=== PATIENT | male | born 1995 | race Caucasian/White ===

== ENCOUNTER 2017-04-25 07:38 | Emergency (ER) | payer BC ==
[2017-04-25 07:46] VITALS: RESP 20
[2017-04-25] MEDS ORDERED: SODIUM CHLORIDE 0.9% 1,000 ML IV STA (08:16)
[2017-04-25] MEDS ORDERED: KETOROLAC 30 MG/ML 1 ML VIAL IVP STA (08:17)
[2017-04-25] MEDS ORDERED: FAMOTIDINE 20 MG/2 ML VIAL IV STA (08:17)
[2017-04-25] MEDS ORDERED: ONDANSETRON 4 MG/2 ML VIAL IVP STA (08:17)
--- NOTE | 2017-04-25 08:26 | ED ---
Fever HPI - General Chief Complaint: Fever Stated Complaint: Fever Time Seen by Provider: 04/25/17 08:14 Source: patient, RN notes reviewed Mode of arrival: ambulatory Limitations: no limitations - History of Present Illness Initial Comments: 22-year-old male presents to the emergency department with chief complaint of fever. Patient states he's had fever and sore throat for the past 4 days. Patient states he started to have a little bit of nausea is having crampy abdominal pain followed by diarrhea. Patient states that no one else is sick at home. Patient denies any health history. Patient states he hasn't had any ear pain or headache. Patient was concerned due to the continued symptoms so they thought that he should be evaluated.Patient denies any recent shortness of breath, chest pain, back pain,vomiting, numbness or tingling, dysuria or hematuria, constipation, headaches or visual changes, or any other current symptoms. - Related Data Previous Rx's Medication Instructions Recorded Ibuprofen [Motrin] 600 mg PO Q6HR PRN #20 tab 04/25/17 Ondansetron Odt [Zofran ODT] 4 mg PO Q8HR PRN #20 tab 04/25/17 Allergies Allergy/AdvReac Type Severity Reaction Status Date / Time No Known Allergies Allergy Verified 04/25/17 08:00 Review of Systems ROS Statement: Those systems with pertinent positive or pertinent negative responses have been documented in the HPI. ROS Other: All systems not noted in ROS Statement are negative. Past Medical History Past Medical History: No Reported History History of Any Multi-Drug Resistant Organisms: None Reported Past Surgical History: No Surgical Hx Reported Past Psychological History: No Psychological Hx Reported Smoking Status: Current every day smoker Past Alcohol Use History: None Reported Past Drug Use History: Marijuana General Exam Limitations: no limitations General appearance: alert, in no apparent distress Head exam: Present: atraumatic, normocephalic, normal inspection Eye exam: Present: normal appearance, PERRL, EOMI. Absent: scleral icterus, conjunctival injection, periorbital swelling ENT exam: Present: normal exam, mucous membranes moist, TM's normal bilaterally , normal external ear exam. Absent: normal oropharynx (Minimal erythema noted no exudates.) Neck exam: Present: normal inspection. Absent: tenderness, meningismus, lymphadenopathy Respiratory exam: Present: normal lung sounds bilaterally. Absent: respiratory distress, wheezes, rales, rhonchi, stridor Cardiovascular Exam: Present: regular rate, normal rhythm, normal heart sounds. Absent: systolic murmur, diastolic murmur, rubs, gallop, clicks GI/Abdominal exam: Present: soft, normal bowel sounds. Absent: distended, tenderness, guarding, rebound, rigid Neurological exam: Present: alert, oriented X3 Psychiatric exam: Present: normal affect, normal mood Skin exam: Present: warm, dry, intact, normal color. Absent: rash Course Vital Signs 04/25/17 07:44 Temperature 99.5 F Pulse Rate 86 Respiratory 20 Rate Blood Pressure 103/56 O2 Sat by Pulse 99 Oximetry Medical Decision Making - Medical Decision Making 22-year-old male presents to the emergency department with chief complaint of fever chills sore throat. His lab work is reviewed. Patient does appear to have low sodium however we did give the patient fluids here. This time we discussed increasing fluids in the diet. We discussed patient's symptoms are most likely due to a viral like syndrome. We did discuss follow-up with the family care doctor we did discuss return parameters all patient's questions. He stated he understood reasons finger. Plan. This time he will be discharged home. - Lab Data Result diagrams: 04/25/17 07:58 04/25/17 07:58 Lab Results 04/25/17 04/25/17 04/25/17 Range/Units 07:58 07:58 08:36 WBC 7.4 (3.8-10.6) k/uL RBC 5.42 (4.30-5.90) m/uL Hgb 16.4 (13.0-17.5) gm/dL Hct 45.2 (39.0-53.0) % MCV 83.4 (80.0-100.0) fL MCH 30.2 (25.0-35.0) pg MCHC 36.2 (31.0-37.0) g/dL RDW 12.7 (11.5-15.5) % Plt Count 185 (150-450) k/uL Neutrophils % 79 % Lymphocytes % 10 % Monocytes % 8 % Eosinophils % 0 % Basophils % 0 % Neutrophils # 5.8 (1.3-7.7) k/uL Lymphocytes # 0.7 L (1.0-4.8) k/uL Monocytes # 0.6 (0-1.0) k/uL Eosinophils # 0.0 (0-0.7) k/uL Basophils # 0.0 (0-0.2) k/uL Sodium 135 L (137-145) mmol/L Potassium 4.2 (3.5-5.1) mmol/L Chloride 101 (98-107) mmol/L Carbon Dioxide 20 L (22-30) mmol/L Anion Gap 14 mmol/L BUN 14 (9-20) mg/dL Creatinine 0.87 (0.66-1.25) mg/dL Est GFR (MDRD) Af Amer >60 (>60 ml/min/1.73 sqM) Est GFR (MDRD) Non-Af >60 (>60 ml/min/1.73 sqM) Glucose 108 H (74-99) mg/dL Calcium 9.3 (8.4-10.2) mg/dL Total Bilirubin 0.8 (0.2-1.3) mg/dL AST 31 (17-59) U/L ALT 29 (21-72) U/L Alkaline Phosphatase 40 (38-126) U/L Total Protein 7.9 (6.3-8.2) g/dL Albumin 4.7 (3.5-5.0) g/dL Urine Color Urine Appearance (Clear) Urine pH (5.0-8.0) Ur Specific [place] (1.001-1.035) Urine Protein (Negative) Urine Glucose (UA) (Negative) Urine Blood (Negative) Urine Nitrite (Negative) Urine Bilirubin (Negative) Urine Urobilinogen (<2.0) mg/dL Ur Leukocyte Esterase (Negative) Urine RBC (0-5) /hpf Urine WBC (0-5) /hpf Urine Mucus (None) /hpf Group A Strep Rapid Negative (Negative) 04/25/17 Range/Units 08:45 WBC (3.8-10.6) k/uL RBC (4.30-5.90) m/uL Hgb (13.0-17.5) gm/dL Hct (39.0-53.0) % MCV (80.0-100.0) fL MCH (25.0-35.0) pg MCHC (31.0-37.0) g/dL RDW (11.5-15.5) % Plt Count (150-450) k/uL Neutrophils % % Lymphocytes % % Monocytes % % Eosinophils % % Basophils % % Neutrophils # (1.3-7.7) k/uL Lymphocytes # (1.0-4.8) k/uL Monocytes # (0-1.0) k/uL Eosinophils # (0-0.7) k/uL Basophils # (0-0.2) k/uL Sodium (137-145) mmol/L Potassium (3.5-5.1) mmol/L Chloride (98-107) mmol/L Carbon Dioxide (22-30) mmol/L Anion Gap mmol/L BUN (9-20) mg/dL Creatinine (0.66-1.25) mg/dL Est GFR (MDRD) Af Amer (>60 ml/min/1.73 sqM) Est GFR (MDRD) Non-Af (>60 ml/min/1.73 sqM) Glucose (74-99) mg/dL Calcium (8.4-10.2) mg/dL Total Bilirubin (0.2-1.3) mg/dL AST (17-59) U/L ALT (21-72) U/L Alkaline Phosphatase (38-126) U/L Total Protein (6.3-8.2) g/dL Albumin (3.5-5.0) g/dL Urine Color Yellow Urine Appearance Clear (Clear) Urine pH 6.0 (5.0-8.0) Ur Specific [place] 1.026 (1.001-1.035) Urine Protein 1+ H (Negative) Urine Glucose (UA) Negative (Negative) Urine Blood Small H (Negative) Urine Nitrite Negative (Negative) Urine Bilirubin Negative (Negative) Urine Urobilinogen <2.0 (<2.0) mg/dL Ur Leukocyte Esterase Negative (Negative) Urine RBC 2 (0-5) /hpf Urine WBC 1 (0-5) /hpf Urine Mucus Rare H (None) /hpf Group A Strep Rapid (Negative) Disposition Clinical Impression: Viral infection, Pharyngitis, Diarrhea Disposition: HOME SELF-CARE Condition: Stable Instructions: Fever in Adults (ED) Additional Instructions: Please use medication as discussed. Please follow up with family doctor if symptoms have not improved over the next two days. Please return to the emergency room if your symptoms increase or worsen or for any other concerns. Prescriptions: Ibuprofen [Motrin] 600 mg PO Q6HR PRN #20 tab PRN Reason: Fever Ondansetron Odt [Zofran ODT] 4 mg PO Q8HR PRN #20 tab PRN Reason: Nausea Referrals: Anthony Rodrigez DO [STAFF PHYSICIAN] - 1-2 days Time of Disposition: 09:20
[2017-04-25 08:35] LABS: Basophils % (A) 0 %; CHCM 37.3; Eosinophils % (A) 0 %; HCT 45.2 % (39.0-53.0); HDW 2.88; HGB 16.4 gm/dL (13.0-17.5); Luc % (Auto) 3; Lymphocytes # (A) 0.7 k/uL (1.0-4.8); Lymphocytes % (A) 10 %; MCH 30.2 pg (25.0-35.0); MCHC 36.2 g/dL (31.0-37.0); MCV 83.4 fL (80.0-100.0); Mean Platelet Volume 6.8; Monocytes # (A) 0.6 k/uL (0-1.0); Monocytes % (A) 8 %; Neutrophils # (A) 5.8 k/uL (1.3-7.7); Neutrophils % (A) 79 %; RBC 5.42 m/uL (4.30-5.90); RDW 12.7 % (11.5-15.5); WBC 7.4 k/uL (3.8-10.6); WBC (Perox) 6.94
[2017-04-25 08:51] LABS: ALT 29 U/L (21-72); AST 31 U/L (17-59); Alkaline Phosphatase 40 U/L (38-126); Anion Gap 14 mmol/L; Blood Urea Nitrogen 14 mg/dL (9-20); Calcium 9.3 mg/dL (8.4-10.2); Carbon Dioxide 20 mmol/L (22-30); Chloride 101 mmol/L (98-107); Glucose 108 mg/dL (74-99); Non-African American GFR(MDRD) >60 (>60 ml/min/1.73 sqM); Potassium 4.2 mmol/L (3.5-5.1); Sodium 135 mmol/L (137-145); Total Bilirubin 0.8 mg/dL (0.2-1.3); Total Protein 7.9 g/dL (6.3-8.2)
[2017-04-25 08:59] LABS: Appearance,Urine Clear (Clear); Bilirubin,Urine Negative (Negative); Glucose,Urine (UA) Negative (Negative); Ketones,Urine 3+ (Negative); Leukocyte Esterase,Urine Negative (Negative); Mucus,Urine Rare /hpf; Nitrite,Urine Negative (Negative); Particle Count 7249; Protein,Urine 1+ (Negative); RBC,Urine 2 /hpf (0-5); Specific Gravity,Urine 1.026 (1.001-1.035); UA Billing (MACRO vs. MICRO) MICRO; Urobilinogen,Urine <2.0 mg/dL (<2.0); WBC,Urine 1 /hpf (0-5)
--- NOTE | 2017-04-25 09:01 | XR ---
EXAMINATION TYPE: XR chest 2V DATE OF EXAM: 04/25/2017 COMPARISON: NONE TECHNIQUE: PA and lateral views submitted. HISTORY: cough and fever FINDINGS: The lungs are clear and there is no pneumothorax, pleural effusion, or focal pneumonia. IMPRESSION: 1. No acute process.
[2017-04-25 09:30] VITALS: BP 122/78; PULSE 84; TEMP 98.8
== END 2017-04-25 09:31 | disposition home or self-care (01) ==
LOC: EC 07:38
DX: B34.9 Viral infection, unspecified (principal); J02.9 Acute pharyngitis, unspecified; R19.7 Diarrhea, unspecified; R11.0 Nausea; R10.9 Unspecified abdominal pain; F17.200 Nicotine dependence, unspecified, uncomplicated
CPT/HCPCS: 36415; 80053; 85025; 81001; 87081; 87430; 71020; 99283; 96374; 96375 ×2; 96361; J2405; J1885

== ENCOUNTER 2018-03-08 11:26 | Observation (INO) | payer BC, OTHER ==
[2018-03-08] MEDS ORDERED: SODIUM CHLORIDE 0.9% 1,000 ML IV STA (11:50)
[2018-03-08] MEDS ORDERED: RX INFO: IV CONTRAST WAS GIVEN 1 EACH MISC MISCELLANE PRN (11:50)
[2018-03-08] MEDS ORDERED: ACETAMINOPHEN TAB 325 MG TAB PO STA (11:51)
--- NOTE | 2018-03-08 12:03 | ED ---
Fever HPI - General Source: patient, RN notes reviewed Mode of arrival: wheelchair Limitations: no limitations <Jarvis Velez - Last Filed: 03/08/18 13:17> <Baljit Sloan - Last Filed: 03/08/18 13:21> - General Chief Complaint: Fever Stated Complaint: FEVER X 3 DAYS, PAIN Time Seen by Provider: 03/08/18 11:37 - History of Present Illness Initial Comments: This is a 22-year-old male presents emergency Department chief complaint of fever, abdominal pain. Patient states has been present last 2-3 days. Patient complains of midabdominal pain, Nonradiating. He has had some nausea no vomiting no diarrhea patient. Patient states that he has had a temp at home of 101. He states he's had slight cough but no congestion, sore throat, ear pain. Patient denies any neck pain. He's had intermittent on and off headaches but nothing consistent. He has not taken any recent Tylenol Motrin. Patient has normal drug ALLERGIES. (Jarvis Velez) - Related Data Home Medications Medication Instructions Recorded Confirmed No Known Home Medications [No 03/08/18 03/08/18 Known Home Medications] Allergies Allergy/AdvReac Type Severity Reaction Status Date / Time No Known Allergies Allergy Verified 03/08/18 11:53 Review of Systems ROS Other: All systems not noted in ROS Statement are negative. <Jarvis Velez - Last Filed: 03/08/18 13:17> ROS Other: All systems not noted in ROS Statement are negative. <Baljit Sloan - Last Filed: 03/08/18 13:21> ROS Statement: Those systems with pertinent positive or pertinent negative responses have been documented in the HPI. Past Medical History Past Medical History: No Reported History History of Any Multi-Drug Resistant Organisms: None Reported Past Surgical History: No Surgical Hx Reported Past Psychological History: No Psychological Hx Reported Smoking Status: Current every day smoker Past Alcohol Use History: None Reported Past Drug Use History: Marijuana <Jarvis Velez - Last Filed: 03/08/18 13:17> General Exam Limitations: no limitations General appearance: alert, in no apparent distress Head exam: Present: atraumatic, normocephalic, normal inspection Eye exam: Present: normal appearance, PERRL, EOMI. Absent: scleral icterus, conjunctival injection, periorbital swelling ENT exam: Present: normal exam, normal oropharynx, mucous membranes moist, TM's normal bilaterally, normal external ear exam Neck exam: Present: normal inspection, full ROM. Absent: tenderness, meningismus, lymphadenopathy Respiratory exam: Present: normal lung sounds bilaterally. Absent: respiratory distress, wheezes, rales, rhonchi, stridor Cardiovascular Exam: Present: regular rate, normal rhythm, normal heart sounds. Absent: systolic murmur, diastolic murmur, rubs, gallop, clicks GI/Abdominal exam: Present: soft, tenderness (Moderate periumbilical to right lower quadrant tenderness), normal bowel sounds. Absent: distended, guarding, rebound, rigid Back exam: Absent: CVA tenderness (R), CVA tenderness (L) Skin exam: Present: warm, dry, intact, normal color. Absent: rash <Jarvis Velez - Last Filed: 03/08/18 13:17> Vital Signs 03/08/18 03/08/18 11:31 12:32 Temperature 101.0 F H 99.4 F Pulse Rate 95 84 Respiratory 20 16 Rate Blood Pressure 117/71 119/61 O2 Sat by Pulse 98 95 Oximetry Medical Decision Making - Lab Data Result diagrams: 03/08/18 12:04 03/08/18 12:04 <Jarvis Velez - Last Filed: 03/08/18 13:17> - Lab Data Result diagrams: 03/08/18 12:04 03/08/18 12:04 <Baljit Sloan - Last Filed: 03/08/18 13:21> - Medical Decision Making 22-year-old male presents from for abdominal pain fever. Patient has acute appendicitis on CT unprompted. Patient was given a dose of IV antibiotics. Patient will be admitted to surgery. (Jarvis Velez) The patient is seen and examined. All diagnostics are reviewed. It does appear as though he has an appendicitis. The case is discussed with Dr. Erasmo Hook and she will be evaluating the patient shortly and taking him to surgery. The case is discussed with the PA and I agree with the findings as documented. ( Baljit Sloan) - Lab Data Lab Results 03/08/18 03/08/18 03/08/18 Range/Units 12:04 12:04 12:04 WBC 6.4 (3.8-10.6) k/uL RBC 4.94 (4.30-5.90) m/uL Hgb 14.8 (13.0-17.5) gm/dL Hct 40.3 (39.0-53.0) % MCV 81.6 (80.0-100.0) fL MCH 30.0 (25.0-35.0) pg MCHC 36.7 (31.0-37.0) g/dL RDW 12.9 (11.5-15.5) % Plt Count 195 (150-450) k/uL Neutrophils % 79 % Lymphocytes % 11 % Monocytes % 7 % Eosinophils % 1 % Basophils % 0 % Neutrophils # 5.1 (1.3-7.7) k/uL Lymphocytes # 0.7 L (1.0-4.8) k/uL Monocytes # 0.5 (0-1.0) k/uL Eosinophils # 0.0 (0-0.7) k/uL Basophils # 0.0 (0-0.2) k/uL Hyperchromasia Slight PT (9.0-12.0) sec INR (<1.2) APTT (22.0-30.0) sec Sodium 139 (137-145) mmol/L Potassium 3.6 (3.5-5.1) mmol/L Chloride 99 (98-107) mmol/L Carbon Dioxide 26 (22-30) mmol/L Anion Gap 14 mmol/L BUN 12 (9-20) mg/dL Creatinine 0.70 (0.66-1.25) mg/dL Est GFR (CKD-EPI)AfAm >90 (>60 ml/min/1.73 sqM) Est GFR (CKD-EPI)NonAf >90 (>60 ml/min/1.73 sqM) Glucose 134 H (74-99) mg/dL Plasma Lactic Acid [place] 1.3 (0.7-2.0) mmol/L Calcium 9.1 (8.4-10.2) mg/dL Total Bilirubin 0.5 (0.2-1.3) mg/dL AST 27 (17-59) U/L ALT 45 (21-72) U/L Alkaline Phosphatase 35 L (38-126) U/L Total Protein 7.0 (6.3-8.2) g/dL Albumin 4.5 (3.5-5.0) g/dL Amylase 40 (30-110) U/L Lipase 33 (23-300) U/L Urine Color Urine Appearance (Clear) Urine pH (5.0-8.0) Ur Specific [place] (1.001-1.035) Urine Protein (Negative) Urine Glucose (UA) (Negative) Urine Ketones (Negative) Urine Blood (Negative) Urine Nitrite (Negative) Urine Bilirubin (Negative) Urine Urobilinogen (<2.0) mg/dL Ur Leukocyte Esterase (Negative) Urine RBC (0-5) /hpf Urine WBC (0-5) /hpf Urine Mucus (None) /hpf 03/08/18 03/08/18 Range/Units 12:04 12:20 WBC (3.8-10.6) k/uL RBC (4.30-5.90) m/uL Hgb (13.0-17.5) gm/dL Hct (39.0-53.0) % MCV (80.0-100.0) fL MCH (25.0-35.0) pg MCHC (31.0-37.0) g/dL RDW (11.5-15.5) % Plt Count (150-450) k/uL Neutrophils % % Lymphocytes % % Monocytes % % Eosinophils % % Basophils % % Neutrophils # (1.3-7.7) k/uL Lymphocytes # (1.0-4.8) k/uL Monocytes # (0-1.0) k/uL Eosinophils # (0-0.7) k/uL Basophils # (0-0.2) k/uL Hyperchromasia PT 10.7 (9.0-12.0) sec INR 1.1 (<1.2) APTT 28.5 (22.0-30.0) sec Sodium (137-145) mmol/L Potassium (3.5-5.1) mmol/L Chloride (98-107) mmol/L Carbon Dioxide (22-30) mmol/L Anion Gap mmol/L BUN (9-20) mg/dL Creatinine (0.66-1.25) mg/dL Est GFR (CKD-EPI)AfAm (>60 ml/min/1.73 sqM) Est GFR (CKD-EPI)NonAf (>60 ml/min/1.73 sqM) Glucose (74-99) mg/dL Plasma Lactic Acid [place] (0.7-2.0) mmol/L Calcium (8.4-10.2) mg/dL Total Bilirubin (0.2-1.3) mg/dL AST (17-59) U/L ALT (21-72) U/L Alkaline Phosphatase (38-126) U/L Total Protein (6.3-8.2) g/dL Albumin (3.5-5.0) g/dL Amylase (30-110) U/L Lipase (23-300) U/L Urine Color Yellow Urine Appearance Clear (Clear) Urine pH 6.5 (5.0-8.0) Ur Specific [place] 1.043 H (1.001-1.035) Urine Protein Trace H (Negative) Urine Glucose (UA) Negative (Negative) Urine Ketones 3+ H (Negative) Urine Blood Small H (Negative) Urine Nitrite Negative (Negative) Urine Bilirubin Negative (Negative) Urine Urobilinogen <2.0 (<2.0) mg/dL Ur Leukocyte Esterase Negative (Negative) Urine RBC 19 H (0-5) /hpf Urine WBC 1 (0-5) /hpf Urine Mucus Rare H (None) /hpf Disposition <Jarvis Velez - Last Filed: 03/08/18 13:17> <Baljit Sloan - Last Filed: 03/08/18 13:21> Clinical Impression: Acute appendicitis Disposition: ADMITTED IP TO THIS [facility] Condition: Stable Referrals: None,Stated [Primary Care Provider] - 1-2 days
--- NOTE | 2018-03-08 12:08 | XR ---
EXAMINATION TYPE: XR chest 2V DATE OF EXAM: 03/08/2018 COMPARISON: 04/25/2017 HISTORY: Cough, fever, upper abdominal pain and vomiting. TECHNIQUE: Frontal and lateral views of the chest are obtained. FINDINGS: There is no focal air space opacity, pleural effusion, or pneumothorax seen. The cardiac silhouette size is within normal limits. The osseous structures are intact. IMPRESSION: No acute cardiopulmonary process.
[2018-03-08 12:22] LABS: Basophils % (A) 0 %; Eosinophils % (A) 1 %; HCT 40.3 % (39.0-53.0); HGB 14.8 gm/dL (13.0-17.5); Hyperchromasia Slight; Lymphocytes # (A) 0.7 k/uL (1.0-4.8); Lymphocytes % (A) 11 %; MCHC 36.7 g/dL (31.0-37.0); MCV 81.6 fL (80.0-100.0); Mean Platelet Volume 6.9; Monocytes # (A) 0.5 k/uL (0-1.0); Monocytes % (A) 7 %; Neutrophils # (A) 5.1 k/uL (1.3-7.7); Neutrophils % (A) 79 %; Platelet Count 195 k/uL (150-450); RBC 4.94 m/uL (4.30-5.90); RDW 12.9 % (11.5-15.5); WBC 6.4 k/uL (3.8-10.6)
[2018-03-08 12:32] LABS: ALT 45 U/L (21-72); AST 27 U/L (17-59); Albumin 4.5 g/dL (3.5-5.0); Alkaline Phosphatase 35 U/L (38-126); Amylase 40 U/L (30-110); Anion Gap 14 mmol/L; Blood Urea Nitrogen 12 mg/dL (9-20); Calcium 9.1 mg/dL (8.4-10.2); Carbon Dioxide 26 mmol/L (22-30); Chloride 99 mmol/L (98-107); Glucose 134 mg/dL (74-99); INR 1.1 (<1.2); Lipase 33 U/L (23-300); Partial Thromboplastin Time 28.5 sec (22.0-30.0); Potassium 3.6 mmol/L (3.5-5.1); Prothrombin Time 10.7 sec (9.0-12.0); Sodium 139 mmol/L (137-145); Total Bilirubin 0.5 mg/dL (0.2-1.3)
[2018-03-08 12:54] LABS: Appearance,Urine Clear (Clear); Bilirubin,Urine Negative (Negative); Blood,Urine Small (Negative); Color,Urine Yellow; Glucose,Urine (UA) Negative (Negative); Ketones,Urine 3+ (Negative); Leukocyte Esterase,Urine Negative (Negative); Mucus,Urine Rare /hpf; Nitrite,Urine Negative (Negative); PH, Urine 6.5 (5.0-8.0); Protein,Urine Trace (Negative); RBC,Urine 19 /hpf (0-5); Specific Gravity,Urine 1.043 (1.001-1.035); Urobilinogen,Urine <2.0 mg/dL (<2.0); WBC,Urine 1 /hpf (0-5)
--- NOTE | 2018-03-08 12:54 | CT ---
EXAMINATION TYPE: CT abdomen pelvis w con DATE OF EXAM: 03/08/2018 COMPARISON: NONE HISTORY: Fever, umbilical pain CT DLP: 492.3 mGycm Automated exposure control for dose reduction was used. TECHNIQUE: Helical acquisition of images was performed from the lung bases through the pelvis. CONTRAST: Performed without Oral Contrast and with IV Contrast, patient injected with 100 mL of Isovue 300. FINDINGS: LUNG BASES: Solitary cystic right lower lobe pulmonary bleb is present. Remainder the visualized lung bases are unremarkable. LIVER/GB: Liver is homogeneous and unremarkable. Gallbladder demonstrates no evidence of cholelithias is. PANCREAS: No significant abnormality is seen. SPLEEN: Spleen is within normal limits of size measuring 12 point for centimeters in craniocaudal dim ension. ADRENALS: No thickening or nodularity. KIDNEYS: Kidneys enhance and excrete symmetrically. FREE AIR: No free air is visualized. REPRODUCTIVE ORGANS: No significant abnormality is seen URINARY BLADDER: No significant abnormality is seen. ADENOPATHY: No greater than 1 cm short axis lymph nodes are seen within the abdomen or pelvis. OSSEOUS STRUCTURES: No significant abnormality is seen. BOWEL: The appendix is thick-walled and hyperemic with its mendoza measuring at least 5 mm in thicknes s and appendix measuring up to 1.4 cm in total thickness seen on series 8 image 42, series 7 image 30 , and series 3 image 64. No focal adjacent fluid collection is seen to suggest perforation and absces s formation. There is small bowel feces sign within nondilated loops of adjacent small bowel which ma y relate to reactive ileus. Appreciation of periappendiceal fat stranding is limited due to opposing adjacent bowel loops. IMPRESSION: FINDINGS MOST COMPATIBLE WITH ACUTE UNCOMPLICATED APPENDICITIS WITH REACTIVE SMALL BOWEL ILEUS. Findi ngs were discussed with Dr. Mcelroy at 12:[address] Ortiz as Jarvis Velez was unavailable.
[2018-03-08] MEDS ORDERED: PIPERACILLIN-TAZOBACTAM 3.375 GM in DEXTROSE/WATER 1 50ML.BAG IVPB STA (13:06)
[2018-03-08] MEDS ORDERED: SODIUM CHLORIDE 0.9% 1,000 ML IV ONE (13:16)
[2018-03-08] MEDS ORDERED: MORPHINE SULFATE 4 MG/0.8 ML SYRINGE (INJ) IV PRN (13:18)
[2018-03-08] MEDS ORDERED: NALOXONE 0.4 MG/ML 1 ML VIAL IV PRN ×2 (13:18→14:57)
[2018-03-08] MEDS ORDERED: ONDANSETRON 4 MG/2 ML VIAL IVP PRN (13:18)
[2018-03-08] MEDS ORDERED: SODIUM CHLORIDE 0.9% 1,000 ML IV SCH (13:30)
--- NOTE | 2018-03-08 14:57 | P.GSHP ---
History of Present Illness H&P Date: 03/08/18 Patient is a 22-year-old white male who presents to the emergency room with a complaint of midepigastric abdominal pain and "feeling sick. The patient states that he has had some nausea and vomiting. He has had a temperature increased to 101.7. He reports that he has monthly temperature spikes however has not had this type of abdominal pain in the past. The pain however has decreased since his admission to the emergency department. He ate last at 11: 00 and states he is hungry at this time. He is moving without difficulty without exacerbation of his pain at this time. His CAT scan was reviewed with radiology who do not see any stranding but feel this may represent early appendicitis in the right clinical setting. Past surgical history: 1. ear surgery Past medical history: Negative Medications: Negative ALLERGIES: Negative Social history: Smoke: Stopped 1 month ago Alcohol: Negative Drug use: Marijuana use recreationally every day Review of systems: HEENT: Negative Lungs: Negative Heart: Negative GI: As above : Negative Musculoskeletal: Negative Neurologic: Negative Psychiatric: Negative Integument: Negative - Constitutional Constitutional: Reports as per HPI - Cardiovascular Cardiovascular: Reports as per HPI - Respiratory Respiratory: Reports as per HPI - Gastrointestinal Gastrointestinal: Reports as per HPI - Genitourinary (Female) Genitourinary: Reports as per HPI - Genitourinary (Male) Genitourinary: Reports as per HPI - Musculoskeletal Musculoskeletal: Reports as per HPI - Integumentary Integumentary: Reports as per HPI - Neurological Neurological: Reports as per HPI - Psychiatric Psychiatric: Reports as per HPI Past Medical History Past Medical History: No Reported History History of Any Multi-Drug Resistant Organisms: None Reported Past Surgical History: Ear Surgery Additional Past Surgical History / Comment(s): Bilateral myringotomy/tubes Past Anesthesia/Blood Transfusion Reactions: No Reported Reaction Past Psychological History: No Psychological Hx Reported Additional Psychological History / Comment(s): Pt resides with his fiancee and a cousin. He is independent. He drives. He works as a car sales consultant. Smoking Status: Former smoker Past Alcohol Use History: None Reported Additional Past Alcohol Use History / Comment(s): Pt started smoking in 2000 and quit 1 month ago. Past Drug Use History: Marijuana Additional Drug Use History / Comment(s): Pt states he smokes 1-2 joints a day. - Past Family History Father Family Medical History: No Reported History Additional Family Medical History / Comment(s): Father is healthy. Mother Family Medical History: No Reported History Additional Family Medical History / Comment(s): Mother is healthy. Medications and Allergies Home Medications Medication Instructions Recorded Confirmed Type No Known Home Medications [No 03/08/18 03/08/18 History Known Home Medications] Allergies Allergy/AdvReac Type Severity Reaction Status Date / Time No Known Allergies Allergy Verified 03/08/18 11:53 Surgical - Exam Vital Signs Temp Pulse Resp BP Pulse Ox 101.0 F H 95 20 117/71 98 03/08/18 11:31 03/08/18 11:31 03/08/18 11:31 03/08/18 11:31 03/08/18 11:31 - General no distress, no pain - Eyes normal ocular movement - ENT normal pinna, normal nares, normal mucosa, no hearing loss - Neck no masses, no bruits, trachea midline, no venous distension - Respiratory normal expansion, normal respiratory effort, clear to auscultation - Cardiovascular Rhythm: regular Heart Sounds: normal: S1, S2 - Abdomen Minimal tenderness to deep palpation midepigastric area No guarding or rebound No acute surgical abdomen at this time Abdomen: soft - Integumentary no rash - Musculoskeletal normal gait - Psychiatric oriented to time, oriented to person, oriented to place, speech is normal Results - Labs 03/08/18 12:04 03/08/18 12:04 Abnormal Lab Results - Last 24 Hours (Table) 03/08/18 03/08/18 03/08/18 Range/Units 12:04 12:04 12:20 Lymphocytes # 0.7 L (1.0-4.8) k/uL Glucose 134 H (74-99) mg/dL Alkaline Phosphatase 35 L (38-126) U/L Ur Specific [place] 1.043 H (1.001-1.035) Urine Protein Trace H (Negative) Urine Ketones 3+ H (Negative) Urine Blood Small H (Negative) Urine RBC 19 H (0-5) /hpf Urine Mucus Rare H (None) /hpf Diabetes panel 03/08/18 Range/Units 12:04 Sodium 139 (137-145) mmol/L Potassium 3.6 (3.5-5.1) mmol/L Chloride 99 (98-107) mmol/L Carbon Dioxide 26 (22-30) mmol/L BUN 12 (9-20) mg/dL Creatinine 0.70 (0.66-1.25) mg/dL Glucose 134 H (74-99) mg/dL Calcium 9.1 (8.4-10.2) mg/dL AST 27 (17-59) U/L ALT 45 (21-72) U/L Alkaline Phosphatase 35 L (38-126) U/L Total Protein 7.0 (6.3-8.2) g/dL Albumin 4.5 (3.5-5.0) g/dL Calcium panel 03/08/18 Range/Units 12:04 Calcium 9.1 (8.4-10.2) mg/dL Albumin 4.5 (3.5-5.0) g/dL Pituitary panel 03/08/18 Range/Units 12:04 Sodium 139 (137-145) mmol/L Potassium 3.6 (3.5-5.1) mmol/L Chloride 99 (98-107) mmol/L Carbon Dioxide 26 (22-30) mmol/L BUN 12 (9-20) mg/dL Creatinine 0.70 (0.66-1.25) mg/dL Glucose 134 H (74-99) mg/dL Calcium 9.1 (8.4-10.2) mg/dL Adrenal panel 03/08/18 Range/Units 12:04 Sodium 139 (137-145) mmol/L Potassium 3.6 (3.5-5.1) mmol/L Chloride 99 (98-107) mmol/L Carbon Dioxide 26 (22-30) mmol/L BUN 12 (9-20) mg/dL Creatinine 0.70 (0.66-1.25) mg/dL Glucose 134 H (74-99) mg/dL Calcium 9.1 (8.4-10.2) mg/dL Total Bilirubin 0.5 (0.2-1.3) mg/dL AST 27 (17-59) U/L ALT 45 (21-72) U/L Alkaline Phosphatase 35 L (38-126) U/L Total Protein 7.0 (6.3-8.2) g/dL Albumin 4.5 (3.5-5.0) g/dL - Imaging CT scan - abdomen: report reviewed, image reviewed CT scan - pelvis: report reviewed, image reviewed Assessment and Plan Assessment: Impression/plan: 1. 22 year old white male presenting with fever and midepigastric abdominal pain 2. Resolution of abdominal pain 3. CAT scan was suspicious for acute uncomplicated appendicitis/however clinical picture at this time is not consistent with an acute abdomen although early appendicitis may be possible Plan: 1. I discussed the CAT scan findings with the patient and his family and the patient at this time is refusing operative intervention 2. Will admit patient with IV hydration and IV antibiotics and serial examinations Patient and family understand that he may require operative intervention but at this time he is refusing and we will follow conservatively.
[2018-03-08] MEDS: ACETAMINOPHEN TAB 325 MG TAB PO PRN (20:30)
[2018-03-08] MEDS: FAMOTIDINE 20 MG TAB PO SCH (20:34)
[2018-03-08] MEDS: HEPARIN SODIUM,PORCINE 5,000 UNIT/ML 1 ML VIAL SQ SCH (20:35)
[2018-03-08] MEDS: DEXTROSE 5%-0.45% NACL 1,000 ML IV SCH (20:35)
[2018-03-09] MEDS: PIPERACILLIN-TAZOBACTAM 3.375 GM in DEXTROSE/WATER 1 50ML.BAG IVPB SCH ×4 (01:39→23:51)
[2018-03-09] MEDS: DEXTROSE 5%-0.45% NACL 1,000 ML IV SCH ×2 (01:41→20:34)
[2018-03-09 05:26] LABS: Basophils % (A) 0 %; Eosinophils % (A) 1 %; HCT 39.4 % (39.0-53.0); HGB 14.3 gm/dL (13.0-17.5); Hyperchromasia Slight; Lymphocytes # (A) 0.8 k/uL (1.0-4.8); Lymphocytes % (A) 15 %; MCH 29.7 pg (25.0-35.0); MCHC 36.3 g/dL (31.0-37.0); MCV 81.9 fL (80.0-100.0); Mean Platelet Volume 6.8; Monocytes # (A) 0.4 k/uL (0-1.0); Monocytes % (A) 7 %; Neutrophils # (A) 4.2 k/uL (1.3-7.7); Neutrophils % (A) 75 %; Platelet Count 185 k/uL (150-450); RBC 4.82 m/uL (4.30-5.90); WBC 5.6 k/uL (3.8-10.6)
[2018-03-09 07:40] VITALS: RESP 16
[2018-03-09] MEDS: FAMOTIDINE 20 MG TAB PO SCH ×2 (10:00→20:33)
[2018-03-09] MEDS: HEPARIN SODIUM,PORCINE 5,000 UNIT/ML 1 ML VIAL SQ SCH ×2 (10:00→20:33)
[2018-03-09] MEDS ORDERED: MORPHINE ORAL SOLN 10 MG/5 ML CUP PO PRN (10:48)
--- NOTE | 2018-03-09 11:00 | P.PN ---
Subjective Progress Note Date: 03/09/18 Patient denies abdominal pain this morning. He did have a temperature spike to 101.4 last night. The patient states he is hungry today. His white blood cell count is decreased to 5.6. Although the patient is concerned about the temperature spikes he is refusing surgical intervention. Of concern is the fact that the patient states that every month he has several days of temperature spikes. His CAT scan did show concern for an uncomplicated appendicitis however clinically the patient has no abdominal pain his abdomen is soft and he has a normal white count. Objective - Vital Signs Vital signs: Vital Signs Temp 98.5 F 03/09/18 07:39 Pulse 98 03/09/18 07:39 Resp 16 03/09/18 07:52 BP 107/56 03/09/18 07:39 Pulse Ox 95 03/09/18 07:39 Intake & Output 03/08/18 03/09/18 03/09/18 18:59 06:59 18:59 Weight 72.575 kg 72.575 kg Other: Voiding Method Toilet # Voids 1 - Constitutional General appearance: Present: average body habitus - Respiratory Respiratory: bilateral: CTA - Cardiovascular Heart sounds: normal: S1, S2 - Gastrointestinal Gastrointestinal Comment(s): No guarding or rebound General gastrointestinal: Present: normal bowel sounds, soft - Psychiatric Psychiatric: Present: A&O x's 3, appropriate affect - Labs CBC & Chem 7: 03/09/18 05:16 03/08/18 12:04 Labs: Abnormal Lab Results - Last 24 Hours (Table) 03/08/18 03/08/18 03/08/18 Range/Units 12:04 12:04 12:20 Lymphocytes # 0.7 L (1.0-4.8) k/uL Glucose 134 H (74-99) mg/dL Alkaline Phosphatase 35 L (38-126) U/L Ur Specific [place] 1.043 H (1.001-1.035) Urine Protein Trace H (Negative) Urine Ketones 3+ H (Negative) Urine Blood Small H (Negative) Urine RBC 19 H (0-5) /hpf Urine Mucus Rare H (None) /hpf 03/09/18 Range/Units 05:16 Lymphocytes # 0.8 L (1.0-4.8) k/uL Glucose (74-99) mg/dL Alkaline Phosphatase (38-126) U/L Ur Specific [place] (1.001-1.035) Urine Protein (Negative) Urine Ketones (Negative) Urine Blood (Negative) Urine RBC (0-5) /hpf Urine Mucus (None) /hpf Assessment and Plan Assessment: Impression/plan: 1. 22 year old white male presenting with fever and midepigastric abdominal pain 2. Resolution of abdominal pain 3. CAT scan was suspicious for acute uncomplicated appendicitis/however clinical picture at this time is not consistent with an acute abdomen although early appendicitis may be possible Plan: 1. I discussed the CAT scan findings with the patient and his family and the patient at this time is refusing operative intervention 2. I will obtain an ID consult 3. I discussed with the patient that he may have an early appendicitis antibiotic therapy for uncomplicated appendicitis can be utilized. The patient at this time wishes to a avoid operative intervention we will await ID consult and continue to follow the patient clinically.
[2018-03-09 11:20] VITALS: BMI 22.3
[2018-03-09] MEDS: ACETAMINOPHEN TAB 325 MG TAB PO PRN (20:34)
[2018-03-10] MEDS: DEXTROSE 5%-0.45% NACL 1,000 ML IV SCH ×2 (07:08→07:41)
--- NOTE | 2018-03-10 08:42 | P.CONS ---
History of Present Illness - Reason for Consult Consult date: 03/09/18 - Chief Complaint Abdominal pain and fever - History of Present Illness 22-year-old male presented to hospital with significant abdominal pain associated with a bout of nausea and emesis as well as fever. Because of his significant discomfort he did present to the emergency center. Evaluation was performed to reveal evidence of a computed tomography scan showing evidence of acute appendicitis the patient was admitted and initiated to antibiotic therapy. He has not been seen by surgery and plans are proceeding. Surprisingly the patient is now doing considerably better. His fever 101.4 has resolved. Leukocytosis is improving and he is now without abdominal pain. His nausea and emesis have resolved. He is eating a solid meal without difficulty. He has no significant other symptoms. He has had rapid resolution of his symptoms with antibiotic therapy. He's had no prior bowel troubles in the past and has not had this particular type of abdominal pain in the past either. Denies other medical troubles. Review of Systems HEENT:Denies headache or acute visual change. Denies sinus or mouth discomforts. Denies neck stiffness or pain. Denies significant oral cavity pain. Denies difficulty on swallowing. Lungs: Denies significant shortness of breath, cough, sputum production, or hemoptysis. Cardiovascular: Denies significant shortness of breath, chest pain, chest wall pain, orthopnea, dyspnea on exertion, syncope Gastrointestinal: As per the HPI but had no significant hematemesis melena or hematochezia Musculoskeletal: denies significant myalgias or arthralgias. No new joint swelling. Denies new back pain. Skin: Denies new rash or lesions. No new ulcers or wounds are related.. Neuro: Denies headache or visual change. Denies any new onset weakness or difficulty with ambulation. Denies falls or seizures. Psychiatric:Denies anxiety or depression. Endocrine: Denies significant fatigue, denies significant weight loss or weight gain. Past Medical History Past Medical History: No Reported History History of Any Multi-Drug Resistant Organisms: None Reported Past Surgical History: Ear Surgery Additional Past Surgical History / Comment(s): Bilateral myringotomy/tubes Past Anesthesia/Blood Transfusion Reactions: No Reported Reaction Past Psychological History: No Psychological Hx Reported Additional Psychological History / Comment(s): Pt resides with his fiancee and a cousin. He is independent. He drives. He works as a sales contracts analyst. History of tobacco use. Denies significant alcohol use or recreational drug use. His fiance is only sexual partner. No international travel. No experience. Tattoos being professionally applied Smoking Status: Former smoker Past Alcohol Use History: None Reported Additional Past Alcohol Use History / Comment(s): Pt started smoking in 2000 and quit 1 month ago. Past Drug Use History: Marijuana Additional Drug Use History / Comment(s): Pt states he smokes 1-2 joints a day. - Past Family History Father Family Medical History: No Reported History Additional Family Medical History / Comment(s): Father is healthy. Mother Family Medical History: No Reported History Additional Family Medical History / Comment(s): Mother is healthy. Medications and Allergies Home Medications and Allergies Comment(s): Current Medications Acetaminophen (Tylenol Tab) 650 mg PO Q6HR PRN PRN Reason: Fever and/ or Pain Last Admin: 03/09/18 20:34 Dose: 650 mg Famotidine (Pepcid) 20 mg PO BID [facility] Last Admin: 03/09/18 20:33 Dose: 20 mg Heparin Sodium (Porcine) (Heparin) 5,000 unit SQ Q12HR [facility] Last Admin: 03/09/18 20:33 Dose: 5,000 unit Dextrose/Sodium Chloride (Dextrose 5%-1/2ns Iv Soln) 1,000 mls @ 100 mls/hr IV .Q10H [facility] Last Admin: 03/10/18 07:41 Dose: 100 mls/hr Piperacillin/Tazobactam/ (Dextrose 3.375 gm/ IV Solution) 50 mls @ 12.5 mls/hr IVPB Q8HR [facility] Last Admin: 03/09/18 23:51 Dose: 12.5 mls/hr Miscellaneous Information (Rx Info: Iv Contrast Was Given) 1 each MISCELLANE DAILY PRN PRN Reason: Per Protocol Stop: 03/10/18 11:50 Last Admin: 03/08/18 12:29 Dose: 1 each Morphine Sulfate (Morphine Oral Inge 2mg/Ml) 12 mg PO Q4HR PRN PRN Reason: Severe Pain Naloxone HCl (Narcan) 0.2 mg IV Q2M PRN PRN Reason: Opioid Reversal Ondansetron HCl (Zofran) 4 mg IVP Q8HR PRN PRN Reason: Nausea And Vomiting Home Medications Medication Instructions Recorded Confirmed Type No Known Home Medications [No 03/08/18 03/08/18 History Known Home Medications] Allergies Allergy/AdvReac Type Severity Reaction Status Date / Time No Known Allergies Allergy Verified 03/08/18 11:53 Physical Exam Vitals: Vital Signs Temp Pulse Resp BP Pulse Ox 03/09/18 19:10 99.2 F 113 H 16 103/61 95 03/09/18 15:15 98.4 F 88 16 121/63 95 03/09/18 07:52 16 03/09/18 07:39 98.5 F 98 16 107/56 95 03/09/18 00:05 100 18 Intake and Output 03/09/18 03/09/18 03/10/18 14:59 22:59 06:59 Intake Total 800 Balance 800 Intake: IV 800 Dextrose 5%-0.45% NaCl 1, 800 000 ml @ 100 mls/hr IV . Q10H [facility] Rx#:[id number] Other: Voiding Method Toilet Toilet # Voids 2 Weight 72.575 kg 22-year-old male with a thin small build is in no distress HEENT: Anicteric conjunctiva are pink and moist nasal mucosa grossly intact without significant lesions, there is no thrush. Neck: The neck is supple without significant lymphadenopathy or thyromegaly. Lungs: Good bilateral air entry without significant crackles or wheezing. There is no significant bronchial sounds. There is no egophony or dullness. Heart: Regular rate and rhythm with an audible S1-S2, no S3 no S4. There is no significant murmur click or rub, PMI was nondisplaced. Abdomen: Positive bowel sounds soft and nontender without palpable masses or organomegaly. There was no guarding or rebound. On very deep palpation the patient has no discomfort at all. Specifically in the right lower quadrant. Extremities: The upper extremities have excellent pulses they are symmetric, no significant petechiae or telangiectasia. No splinter hemorrhages were noted. The lower extremities are free from significant edema. The peripheral pulses were 2+ and symmetric. Neuro: Awake alert oriented to person place and time. There are no acute new gross focal sensory motor deficits. Results CBC & Chem 7: 03/09/18 05:16 03/08/18 12:04 Labs: Abnormal Lab Results - Last 24 Hours (Table) 03/09/18 Range/Units 05:16 Lymphocytes # 0.8 L (1.0-4.8) k/uL Microbiology - Last 24 Hours (Table) 03/08/18 12:04 Blood Culture - Preliminary Blood No Growth after 24 hours Laboratory Results WBC 5.6 k/uL (3.8-10.6) 03/09/18 05:16 RBC 4.82 m/uL (4.30-5.90) 03/09/18 05:16 Hgb 14.3 gm/dL (13.0-17.5) 03/09/18 05:16 Hct 39.4 % (39.0-53.0) 03/09/18 05:16 MCV 81.9 fL (80.0-100.0) 03/09/18 05:16 MCH 29.7 pg (25.0-35.0) 03/09/18 05:16 MCHC 36.3 g/dL (31.0-37.0) 03/09/18 05:16 RDW 13.0 % (11.5-15.5) 03/09/18 05:16 Plt Count 185 k/uL (150-450) 03/09/18 05:16 Neutrophils % 75 % 03/09/18 05:16 Lymphocytes % 15 % 03/09/18 05:16 Monocytes % 7 % 03/09/18 05:16 Eosinophils % 1 % 03/09/18 05:16 Basophils % 0 % 03/09/18 05:16 Neutrophils # 4.2 k/uL (1.3-7.7) 03/09/18 05:16 Lymphocytes # 0.8 k/uL (1.0-4.8) L 03/09/18 05:16 Monocytes # 0.4 k/uL (0-1.0) 03/09/18 05:16 Eosinophils # 0.0 k/uL (0-0.7) 03/09/18 05:16 Basophils # 0.0 k/uL (0-0.2) 03/09/18 05:16 Hyperchromasia Slight 03/09/18 05:16 PT 10.7 sec (9.0-12.0) 03/08/18 12:04 INR 1.1 (<1.2) 03/08/18 12:04 APTT 28.5 sec (22.0-30.0) 03/08/18 12:04 Sodium 139 mmol/L (137-145) 03/08/18 12:04 Potassium 3.6 mmol/L (3.5-5.1) 03/08/18 12:04 Chloride 99 mmol/L (98-107) 03/08/18 12:04 Carbon Dioxide 26 mmol/L (22-30) 03/08/18 12:04 Anion Gap 14 mmol/L 03/08/18 12:04 BUN 12 mg/dL (9-20) 03/08/18 12:04 Creatinine 0.70 mg/dL (0.66-1.25) 03/08/18 12:04 Est GFR (CKD-EPI)AfAm >90 (>60 ml/min/1.73 sqM) 03/08/18 12:04 Est GFR (CKD-EPI)NonAf >90 (>60 ml/min/1.73 sqM) 03/08/18 12:04 Glucose 134 mg/dL (74-99) H 03/08/18 12:04 Plasma Lactic Acid [place] 1.3 mmol/L (0.7-2.0) 03/08/18 12:04 Calcium 9.1 mg/dL (8.4-10.2) 03/08/18 12:04 Total Bilirubin 0.5 mg/dL (0.2-1.3) 03/08/18 12:04 AST 27 U/L (17-59) 03/08/18 12:04 ALT 45 U/L (21-72) 03/08/18 12:04 Alkaline Phosphatase 35 U/L (38-126) L 03/08/18 12:04 Total Protein 7.0 g/dL (6.3-8.2) 03/08/18 12:04 Albumin 4.5 g/dL (3.5-5.0) 03/08/18 12:04 Amylase 40 U/L (30-110) 03/08/18 12:04 Lipase 33 U/L (23-300) 03/08/18 12:04 Urine Color Yellow 03/08/18 12:20 Urine Appearance Clear (Clear) 03/08/18 12:20 Urine pH 6.5 (5.0-8.0) 03/08/18 12:20 Ur Specific [place] 1.043 (1.001-1.035) H 03/08/18 12:20 Urine Protein Trace (Negative) H 03/08/18 12:20 Urine Glucose (UA) Negative (Negative) 03/08/18 12:20 Urine Ketones 3+ (Negative) H 03/08/18 12:20 Urine Blood Small (Negative) H 03/08/18 12:20 Urine Nitrite Negative (Negative) 03/08/18 12:20 Urine Bilirubin Negative (Negative) 03/08/18 12:20 Urine Urobilinogen <2.0 mg/dL (<2.0) 03/08/18 12:20 Ur Leukocyte Esterase Negative (Negative) 03/08/18 12:20 Urine RBC 19 /hpf (0-5) H 03/08/18 12:20 Urine WBC 1 /hpf (0-5) 03/08/18 12:20 Urine Mucus Rare /hpf (None) H 03/08/18 12:20 Microbiology 03/08/18 12:04 Blood Blood Culture - Preliminary No Growth after [address] scan - abdomen: report reviewed (Appendicitis without rupture) Assessment and Plan Assessment: Pleasant 22-year-old male presented hospital stinking onset of abdominal pain associated with some nausea and emesis. He also believed that he had a fever. Upon arrival 101.4 fever was noted and constantly CT scanning was performed that showed evidence of acute inflammation of the appendix. With initiation of antibiotic therapy the patient has had a rapid improvement of his symptoms. He is having no abdominal discomforts and no abdominal tenderness on exam. Is up and walking without difficulties. He has not been able to eat without nausea or emesis. She's had no further abdominal pain. In his fevers have resolved. The patient does not want to have surgical intervention. At this time he is on intravenous antibiotic therapy and as he improves over the next several hours likely will be transitioned to oral Augmentin 875 mg orally twice per day for 7 days. Expect to be discharged soon and then follow-up with the surgeon the outpatient setting. He understands that antibiotic therapy alone may be an adequate and he still may present for surgical intervention in the future.
[2018-03-10 08:57] VITALS: BP 103/68; PULSE 83; TEMP 98.8
--- NOTE | 2018-03-10 09:02 | P.DS ---
Providers Date of admission: 03/08/18 13:19 Expected date of discharge: 03/10/18 Attending physician: Jesica Manzo Consults: 03/09/18 11:00 Consult Physician Routine Consulting Provider: Omar Meneses Consult Reason/Comments: temperature spikes Do you want consulting provider notified?: Yes Primary care physician: Stated None Hospital Course: Patient admitted with fevers. CAT scan showed possible appendicitis. The patient had pain apparently in the periumbilical region initially on arrival but that pain quickly resolved. Apparently discussions with Dr. Zimmerman regarding surgery blood to the patient deciding to refuse surgical intervention for the possible appendicitis. He was placed on empiric antibiotics. He was seen by infectious disease. He continues to feel well. He had a T-max last night of 99.2. He is hoping to go home today. He is tolerating a regular diet. Plan at this time is to transition to Augmentin twice a day. We'll discharge today. Follow-up with Dr. Zimmerman in 1 week. Patient Condition at Discharge: Stable Plan - Discharge Summary Discharge Rx Participant: No New Discharge Prescriptions: New Amoxicillin/Potassium Clav [Augmentin 875-125 Tablet] 1 tab PO Q12HR #20 tab Discharge Medication List Amoxicillin/Potassium Clav [Augmentin 875-125 Tablet] 1 tab PO Q12HR #20 tab [Rx] Follow up Appointment(s)/Referral(s): None,Stated [Primary Care Provider] - 1-2 days Jesica Manoz MD [STAFF PHYSICIAN] - 1 Week
[2018-03-10] MEDS: HEPARIN SODIUM,PORCINE 5,000 UNIT/ML 1 ML VIAL SQ SCH (09:08)
[2018-03-10] MEDS: PIPERACILLIN-TAZOBACTAM 3.375 GM in DEXTROSE/WATER 1 50ML.BAG IVPB SCH (09:08)
[2018-03-10] MEDS: FAMOTIDINE 20 MG TAB PO SCH (09:09)
== END 2018-03-10 12:52 | disposition home or self-care (01) ==
LOC: EC 11:26 → 3SUR 13:19
PROVIDERS: ADMIT Surgery; ATTEND Surgery
DX: R50.9 Fever, unspecified (principal); R10.13 Epigastric pain; R11.2 Nausea with vomiting, unspecified; R05 Cough; R51 Headache; Z87.891 Personal history of nicotine dependence; D72.829 Elevated white blood cell count, unspecified
CPT/HCPCS: 99285 ×2; 96361 ×2; 96365 ×2; 96366 ×3; 96372 ×2; 36415 ×2; 80053; 82150; 83605; 83690; 85025 ×2; 85610; 85730; 81001; 87040; 71046; 74177; G0378 ×3; J1644 ×2; J2543 ×3; Q9967

== ENCOUNTER → 2019-06-05 | Outpatient (CLI) | payer BC ==
--- NOTE | 2019-06-05 16:15 | CT ---
EXAMINATION TYPE: CT abdomen pelvis w con DATE OF EXAM: 06/05/2019 COMPARISON: [id number] HISTORY: Right lower quadrant pain and vomiting. CT DLP: 495 mGycm CONTRAST: CT scan of the abdomen and pelvis is performed with Oral Contrast and with IV Contrast, patient injec brianna with 100 mL of Isovue M300. FINDINGS: LUNG BASES-: No visible nodule. No infiltrate. LIVER/GB: No calcified gallstones. No space occupying hepatic lesion. Biliary tree is of normal ca liber. PANCREAS: No inflammation. No distinct mass. SPLEEN: No splenic enlargement. No lesion seen. ADRENALS: No nodule. No thickening. KIDNEYS/BLADDER: No hydronephrosis. No nephrolithiasis. No distinct renal mass. Urinary bladder g rossly unremarkable. BOWEL: Normal appendix. Thickening of the terminal ileum may reflect underlying Crohn's disease. [place]twan elate clinically. No evidence for free air or abscess. GENITAL ORGANS: No gross abnormality. LYMPH NODES: No greater than 1cm abdominal or pelvic lymph nodes are appreciated. AORTA: No significant abnormality. OSSEOUS STRUCTURES: No significant abnormality is seen. OTHER: No significant additional abnormality is seen. IMPRESSION: 1. Correlate for terminal ileitis or Crohn's disease. 2. Normal appendix.
== END | disposition home or self-care (01) ==
LOC: RADCTMAIN 14:14
PROVIDERS: ATTEND Physician Assistant
DX: R10.31 Right lower quadrant pain (principal)
CPT/HCPCS: 74177; Q9967

== ENCOUNTER 2019-07-01 14:04 | Emergency (ER) | payer BC ==
[2019-07-01 14:14] VITALS: BP 90/63; PULSE 47; RESP 16; TEMP 97.8
[2019-07-01] MEDS ORDERED: SODIUM CHLORIDE 0.9% 1,000 ML IV STA (15:03)
[2019-07-01 15:19] LABS: Basophils % (A) 1 %; Eosinophils # (A) 0.2 k/uL (0-0.7); Eosinophils % (A) 3 %; HCT 41.4 % (39.0-53.0); HGB 14.5 gm/dL (13.0-17.5); Lymphocytes # (A) 2.2 k/uL (1.0-4.8); Lymphocytes % (A) 35 %; MCHC 35.1 g/dL (31.0-37.0); MCV 85.3 fL (80.0-100.0); Mean Platelet Volume 6.7; Monocytes # (A) 0.3 k/uL (0-1.0); Monocytes % (A) 5 %; Neutrophils # (A) 3.6 k/uL (1.3-7.7); Neutrophils % (A) 55 %; Platelet Count 246 k/uL (150-450); RBC 4.85 m/uL (4.30-5.90); RDW 12.9 % (11.5-15.5); WBC 6.4 k/uL (3.8-10.6)
[2019-07-01 15:30] LABS: ALT 19 U/L (21-72); AST 16 U/L (17-59); African American GFR (CKD) >90 (>60 ml/min/1.73 sqM); Albumin 4.3 g/dL (3.5-5.0); Alkaline Phosphatase 41 U/L (38-126); Amylase 48 U/L (30-110); Anion Gap 8 mmol/L; Blood Urea Nitrogen 22 mg/dL (9-20); Carbon Dioxide 26 mmol/L (22-30); Chloride 106 mmol/L (98-107); Glucose 102 mg/dL (74-99); Potassium 4.2 mmol/L (3.5-5.1); Sodium 140 mmol/L (137-145); Total Bilirubin 0.4 mg/dL (0.2-1.3); Total Protein 6.9 g/dL (6.3-8.2)
[2019-07-01 16:14] LABS: Appearance,Urine Cloudy (Clear); Bacteria,Urine Rare /hpf; Bilirubin,Urine Negative (Negative); Blood,Urine Negative (Negative); Color,Urine Yellow; Glucose,Urine (UA) Negative (Negative); Ketones,Urine Negative (Negative); Leukocyte Esterase,Urine Negative (Negative); Mucus,Urine Rare /hpf; Nitrite,Urine Negative (Negative); PH, Urine 7.5 (5.0-8.0); Protein,Urine Negative (Negative); Specific Gravity,Urine 1.026 (1.001-1.035); Urobilinogen,Urine <2.0 mg/dL (<2.0)
--- NOTE | 2019-07-01 16:23 | ED ---
Abdominal Pain HPI - General Chief Complaint: Abdominal Pain Stated Complaint: Abd Pain Time Seen by Provider: 07/01/19 14:29 Source: patient Mode of arrival: ambulatory Limitations: no limitations - History of Present Illness Initial Comments: Patient is a 24-year-old male presenting to the emergency Department with complaints of left lower quadrant abdominal pain 2 days. Patient states he was seen in [place] for abdominal discomfort a few weeks ago, diagnosed with colitis, and was given referral to a GI specialist but lost referral and did not follow-up. Patient states this discomfort started a few days ago and is mainly on the left side. Patient currently rates the pain 3/10. Patient denies fever, chills, nausea, vomiting, urinary complaints. Patient states his last bowel movement was today was normal. Patient denies history of Crohn's or diverticulosis. Patient denies history of abdominal surgeries, but was treated for appendicitis a few years ago, without surgery. Patient has no other complaints at this time. Upon arrival, vital signs are stable, afebrile. - Related Data Home Medications Medication Instructions Recorded Confirmed Famotidine [Pepcid] 20 mg PO BID 07/01/19 07/01/19 Omeprazole 20 mg PO DAILY 07/01/19 07/01/19 Allergies Allergy/AdvReac Type Severity Reaction Status Date / Time No Known Allergies Allergy Verified 07/01/19 14:39 Review of Systems ROS Statement: Those systems with pertinent positive or pertinent negative responses have been documented in the HPI. ROS Other: All systems not noted in ROS Statement are negative. Past Medical History Past Medical History: No Reported History History of Any Multi-Drug Resistant Organisms: None Reported Past Surgical History: Ear Surgery Additional Past Surgical History / Comment(s): Bilateral myringotomy/tubes Past Anesthesia/Blood Transfusion Reactions: No Reported Reaction Past Psychological History: No Psychological Hx Reported Smoking Status: Former smoker Past Alcohol Use History: None Reported Past Drug Use History: Marijuana - Past Family History Father Family Medical History: No Reported History Additional Family Medical History / Comment(s): Father is healthy. Mother Family Medical History: No Reported History Additional Family Medical History / Comment(s): Mother is healthy. General Exam - General Exam Comments Initial Comments: GENERAL: Well-appearing, well-nourished and in no acute distress. HEAD: Atraumatic, normocephalic. EYES: Pupils equal round and reactive to light, extraocular movements intact, sclera anicteric, conjunctiva are normal. ENT: TMs normal, nares patent, oropharynx clear without exudates. Moist mucous membranes. NECK: Normal range of motion, supple without lymphadenopathy or JVD. LUNGS: Breath sounds clear to auscultation bilaterally and equal. No wheezes rales or rhonchi. HEART: Regular rate and rhythm without murmurs, rubs or gallops. ABDOMEN: Mild tenderness to the left upper and lower quadrant as well as right upper quadrant. Soft, normoactive bowel sounds. No guarding, no rebound. No masses appreciated. : Deferred EXTREMITIES: Normal range of motion, no pitting or edema. No clubbing or cyanosis. NEUROLOGICAL: Cranial nerves II through XII grossly intact. Normal speech, normal gait. PSYCH: Normal mood, normal affect. SKIN: Warm, Dry, normal turgor, no rashes or lesions noted. Limitations: no limitations Course Vital Signs 07/01/19 14:10 Temperature 97.8 F Pulse Rate 47 L Respiratory 16 Rate Blood Pressure 90/63 O2 Sat by Pulse 98 Oximetry Medical Decision Making - Medical Decision Making Patient is a 24-year-old male presenting with left lower quadrant abdominal pain 2 days. Patient states he was seen in [place] for similar complaint a few weeks ago, had a normal CT was given a GI referral. Patient states he lost that referral has not followed up. Patient states the pain is still present and is currently a 2/10. Patient denies fever, chills, nausea, vomiting, diarrhea. Vital signs are stable, afebrile. Patient has mild tenderness of the left lower and upper quadrant, otherwise patient's exam is within normal limits. CBC, CMP are within normal limits. Lactic acid is normal. UA is normal. Patient was given a liter of fluids and reports improvement. Given patient's recent computed tomography scan further imaging is not indicated at this time. Was discussed with patient to follow up with GI. Referral was given. Patient is stable for discharge at this time and patient is in agreement with this plan of care. Return parameters were discussed with the patient he verbalizes understanding. case discussed with Dr. Chahal. - Lab Data Result diagrams: 07/01/19 15:10 07/01/19 15:10 Lab Results 07/01/19 07/01/19 07/01/19 Range/Units 15:10 15:10 15:10 WBC 6.4 (3.8-10.6) k/uL RBC 4.85 (4.30-5.90) m/uL Hgb 14.5 (13.0-17.5) gm/dL Hct 41.4 (39.0-53.0) % MCV 85.3 (80.0-100.0) fL MCH 30.0 (25.0-35.0) pg MCHC 35.1 (31.0-37.0) g/dL RDW 12.9 (11.5-15.5) % Plt Count 246 (150-450) k/uL Neutrophils % 55 % Lymphocytes % 35 % Monocytes % 5 % Eosinophils % 3 % Basophils % 1 % Neutrophils # 3.6 (1.3-7.7) k/uL Lymphocytes # 2.2 (1.0-4.8) k/uL Monocytes # 0.3 (0-1.0) k/uL Eosinophils # 0.2 (0-0.7) k/uL Basophils # 0.0 (0-0.2) k/uL Sodium 140 (137-145) mmol/L Potassium 4.2 (3.5-5.1) mmol/L Chloride 106 (98-107) mmol/L Carbon Dioxide 26 (22-30) mmol/L Anion Gap 8 mmol/L BUN 22 H (9-20) mg/dL Creatinine 0.75 (0.66-1.25) mg/dL Est GFR (CKD-EPI)AfAm >90 (>60 ml/min/1.73 sqM) Est GFR (CKD-EPI)NonAf >90 (>60 ml/min/1.73 sqM) Glucose 102 H (74-99) mg/dL Plasma Lactic Acid Elbert <0.5 L (0.7-2.0) mmol/L Calcium 9.0 (8.4-10.2) mg/dL Total Bilirubin 0.4 (0.2-1.3) mg/dL AST 16 L (17-59) U/L ALT 19 L (21-72) U/L Alkaline Phosphatase 41 (38-126) U/L Total Protein 6.9 (6.3-8.2) g/dL Albumin 4.3 (3.5-5.0) g/dL Amylase 48 (30-110) U/L Lipase 141 (23-300) U/L Urine Color Urine Appearance (Clear) Urine pH (5.0-8.0) Ur Specific [place] (1.001-1.035) Urine Protein (Negative) Urine Glucose (UA) (Negative) Urine Ketones (Negative) Urine Blood (Negative) Urine Nitrite (Negative) Urine Bilirubin (Negative) Urine Urobilinogen (<2.0) mg/dL Ur Leukocyte Esterase (Negative) Urine Bacteria (None) /hpf Urine Mucus (None) /hpf 07/01/19 Range/Units 15:18 WBC (3.8-10.6) k/uL RBC (4.30-5.90) m/uL Hgb (13.0-17.5) gm/dL Hct (39.0-53.0) % MCV (80.0-100.0) fL MCH (25.0-35.0) pg MCHC (31.0-37.0) g/dL RDW (11.5-15.5) % Plt Count (150-450) k/uL Neutrophils % % Lymphocytes % % Monocytes % % Eosinophils % % Basophils % % Neutrophils # (1.3-7.7) k/uL Lymphocytes # (1.0-4.8) k/uL Monocytes # (0-1.0) k/uL Eosinophils # (0-0.7) k/uL Basophils # (0-0.2) k/uL Sodium (137-145) mmol/L Potassium (3.5-5.1) mmol/L Chloride (98-107) mmol/L Carbon Dioxide (22-30) mmol/L Anion Gap mmol/L BUN (9-20) mg/dL Creatinine (0.66-1.25) mg/dL Est GFR (CKD-EPI)AfAm (>60 ml/min/1.73 sqM) Est GFR (CKD-EPI)NonAf (>60 ml/min/1.73 sqM) Glucose (74-99) mg/dL Plasma Lactic Acid Elbert (0.7-2.0) mmol/L Calcium (8.4-10.2) mg/dL Total Bilirubin (0.2-1.3) mg/dL AST (17-59) U/L ALT (21-72) U/L Alkaline Phosphatase (38-126) U/L Total Protein (6.3-8.2) g/dL Albumin (3.5-5.0) g/dL Amylase (30-110) U/L Lipase (23-300) U/L Urine Color Yellow Urine Appearance Cloudy (Clear) Urine pH 7.5 (5.0-8.0) Ur Specific [place] 1.026 (1.001-1.035) Urine Protein Negative (Negative) Urine Glucose (UA) Negative (Negative) Urine Ketones Negative (Negative) Urine Blood Negative (Negative) Urine Nitrite Negative (Negative) Urine Bilirubin Negative (Negative) Urine Urobilinogen <2.0 (<2.0) mg/dL Ur Leukocyte Esterase Negative (Negative) Urine Bacteria Rare H (None) /hpf Urine Mucus Rare H (None) /hpf Disposition Clinical Impression: Abdominal pain Disposition: HOME SELF-CARE Condition: Stable Instructions (If sedation given, give patient instructions): Abdominal Pain (ED) Additional Instructions: Please return to the Emergency Department if symptoms worsen or any other concerns. Continue with medications as discussed. Follow up with GI as discussed. Is patient prescribed a controlled substance at d/c from ED?: No Referrals: None,Stated [Primary Care Provider] - 1-2 days Abran Szymanski MD [STAFF PHYSICIAN] - 1-2 days
== END 2019-07-01 17:02 | disposition home or self-care (01) ==
LOC: EC 14:04
DX: R10.32 Left lower quadrant pain (principal); Z87.891 Personal history of nicotine dependence; Z79.899 Other long term (current) drug therapy
CPT/HCPCS: 36415; 80053; 81001; 82150; 83605; 83690; 85025; 96360; 99283

== ENCOUNTER 2020-08-03 16:02 | Emergency (ER) | payer BC ==
[2020-08-03 16:13] VITALS: RESP 18
[2020-08-03] MEDS ORDERED: PANTOPRAZOLE 40 MG/10 ML VIAL IVP STA (17:12)
[2020-08-03 17:27] LABS: Basophils # (A) 0.1 k/uL (0-0.2); Basophils % (A) 1 %; Eosinophils # (A) 0.3 k/uL (0-0.7); Eosinophils % (A) 3 %; HCT 44.3 % (39.0-53.0); HGB 14.7 gm/dL (13.0-17.5); Lymphocytes % (A) 34 %; MCH 28.4 pg (25.0-35.0); MCHC 33.2 g/dL (31.0-37.0); MCV 85.4 fL (80.0-100.0); Mean Platelet Volume 6.8; Monocytes # (A) 0.4 k/uL (0-1.0); Monocytes % (A) 4 %; Neutrophils % (A) 56 %; Platelet Count 236 k/uL (150-450); RBC 5.19 m/uL (4.30-5.90); RDW 12.2 % (11.5-15.5); WBC 8.8 k/uL (3.8-10.6)
[2020-08-03 17:37] LABS: Appearance,Urine Clear (Clear); Bilirubin,Urine Negative (Negative); Blood,Urine Trace (Negative); Color,Urine Yellow; Glucose,Urine (UA) Negative (Negative); Ketones,Urine Negative (Negative); Leukocyte Esterase,Urine Negative (Negative); Mucus,Urine Occasional /hpf; Nitrite,Urine Negative (Negative); Protein,Urine Negative (Negative); RBC,Urine 1 /hpf (0-5); Specific Gravity,Urine 1.027 (1.001-1.035); Urobilinogen,Urine <2.0 mg/dL (<2.0); WBC,Urine 1 /hpf (0-5)
[2020-08-03 17:39] LABS: ALT 24 U/L (4-49); AST 26 U/L (17-59); African American GFR (CKD) >90 (>60 ml/min/1.73 sqM); Albumin 4.6 g/dL (3.5-5.0); Alkaline Phosphatase 47 U/L (38-126); Amylase 54 U/L (30-110); Anion Gap 7 mmol/L; Blood Urea Nitrogen 14 mg/dL (9-20); Calcium 9.3 mg/dL (8.4-10.2); Carbon Dioxide 26 mmol/L (22-30); Chloride 102 mmol/L (98-107); Glucose 104 mg/dL (74-99); Non-African American GFR(CKD) >90 (>60 ml/min/1.73 sqM); Potassium 4.2 mmol/L (3.5-5.1); Sodium 135 mmol/L (137-145); Total Bilirubin 0.5 mg/dL (0.2-1.3); Total Protein 7.5 g/dL (6.3-8.2)
--- NOTE | 2020-08-03 18:18 | ED ---
Abdominal Pain HPI - General Chief Complaint: Abdominal Pain Stated Complaint: abd pain Time Seen by Provider: 08/03/20 16:42 Source: patient, RN notes reviewed, old records reviewed Mode of arrival: ambulatory Limitations: no limitations - History of Present Illness Initial Comments: This is a 25-year-old male presents today with upper abdominal pain complaint of bruising sensation is been going on for the past month every morning he wakes up. He complains that he coughs sometimes will dry heaves. He denies any previous surgical history. Denies any changes in stool. Patient states she's had no chest pain, shortness of breath. He denies any dysuria or hematuria. Patient reports he's previously been diagnosed with GERD and has not been taking any medications to help with this at this time. - Related Data Home Medications Medication Instructions Recorded Confirmed Famotidine [Pepcid] 20 mg PO BID 07/01/19 07/01/19 Omeprazole 20 mg PO DAILY 07/01/19 07/01/19 Previous Rx's Medication Instructions Recorded Famotidine [Pepcid] 20 mg PO BID #20 tablet 08/03/20 Allergies Allergy/AdvReac Type Severity Reaction Status Date / Time No Known Allergies Allergy Verified 08/03/20 16:13 Review of Systems ROS Statement: Those systems with pertinent positive or pertinent negative responses have been documented in the HPI. ROS Other: All systems not noted in ROS Statement are negative. Past Medical History Past Medical History: No Reported History History of Any Multi-Drug Resistant Organisms: None Reported Past Surgical History: Ear Surgery Additional Past Surgical History / Comment(s): Bilateral myringotomy/tubes Past Anesthesia/Blood Transfusion Reactions: No Reported Reaction Past Psychological History: No Psychological Hx Reported Smoking Status: Current every day smoker Past Alcohol Use History: None Reported Past Drug Use History: Marijuana - Past Family History Father Family Medical History: No Reported History Additional Family Medical History / Comment(s): Father is healthy. Mother Family Medical History: No Reported History Additional Family Medical History / Comment(s): Mother is healthy. General Exam - General Exam Comments Initial Comments: 25-year-old male. Alert and oriented. Patient appears in no distress. Limitations: no limitations General appearance: alert, in no apparent distress Head exam: Present: atraumatic, normocephalic, normal inspection Eye exam: Present: normal appearance, PERRL, EOMI. Absent: scleral icterus, conjunctival injection, periorbital swelling ENT exam: Present: normal exam, mucous membranes moist Neck exam: Present: normal inspection. Absent: tenderness, meningismus, lymphadenopathy Respiratory exam: Present: normal lung sounds bilaterally. Absent: respiratory distress, wheezes, rales, rhonchi, stridor Cardiovascular Exam: Present: regular rate, normal rhythm, normal heart sounds. Absent: systolic murmur, diastolic murmur, rubs, gallop, clicks GI/Abdominal exam: Present: soft, normal bowel sounds. Absent: distended, tenderness, guarding, rebound, rigid Extremities exam: Present: normal inspection Back exam: Present: normal inspection Neurological exam: Present: alert Psychiatric exam: Present: normal affect, normal mood Course Vital Signs 08/03/20 08/03/20 16:11 18:26 Temperature 97.3 F L 97.5 F L Pulse Rate 67 59 L Respiratory 18 18 Rate Blood Pressure 96/59 112/62 O2 Sat by Pulse 98 98 Oximetry Medical Decision Making - Medical Decision Making 25-year-old male presents the ER today for upper abdominal pain going on for the past month complaint of feeling like a bruising sensation traveling. Patient also states that when he wakes up he has a cough and will occasionally dry heave. Concern for gastritis and GERD that the Patient did request labs. Labs including lipase and liver enzymes are unremarkable. I discussed Patient needs follow-up with PCP we'll start the Patient on an acid medication. Patient requested work note. - Lab Data Result diagrams: 08/03/20 17:15 08/03/20 17:15 Lab Results 08/03/20 08/03/20 08/03/20 Range/Units 17:15 17:15 17:15 WBC 8.8 (3.8-10.6) k/uL RBC 5.19 (4.30-5.90) m/uL Hgb 14.7 (13.0-17.5) gm/dL Hct 44.3 (39.0-53.0) % MCV 85.4 (80.0-100.0) fL MCH 28.4 (25.0-35.0) pg MCHC 33.2 (31.0-37.0) g/dL RDW 12.2 (11.5-15.5) % Plt Count 236 (150-450) k/uL Neutrophils % 56 % Lymphocytes % 34 % Monocytes % 4 % Eosinophils % 3 % Basophils % 1 % Neutrophils # 5.0 (1.3-7.7) k/uL Lymphocytes # 3.0 (1.0-4.8) k/uL Monocytes # 0.4 (0-1.0) k/uL Eosinophils # 0.3 (0-0.7) k/uL Basophils # 0.1 (0-0.2) k/uL Sodium 135 L (137-145) mmol/L Potassium 4.2 (3.5-5.1) mmol/L Chloride 102 (98-107) mmol/L Carbon Dioxide 26 (22-30) mmol/L Anion Gap 7 mmol/L BUN 14 (9-20) mg/dL Creatinine 0.68 (0.66-1.25) mg/dL Est GFR (CKD-EPI)AfAm >90 (>60 ml/min/1.73 sqM) Est GFR (CKD-EPI)NonAf >90 (>60 ml/min/1.73 sqM) Glucose 104 H (74-99) mg/dL Calcium 9.3 (8.4-10.2) mg/dL Total Bilirubin 0.5 (0.2-1.3) mg/dL AST 26 (17-59) U/L ALT 24 (4-49) U/L Alkaline Phosphatase 47 (38-126) U/L Total Protein 7.5 (6.3-8.2) g/dL Albumin 4.6 (3.5-5.0) g/dL Amylase 54 (30-110) U/L Lipase 132 (23-300) U/L Urine Color Yellow Urine Appearance Clear (Clear) Urine pH 6.0 (5.0-8.0) Ur Specific [place] 1.027 (1.001-1.035) Urine Protein Negative (Negative) Urine Glucose (UA) Negative (Negative) Urine Ketones Negative (Negative) Urine Blood Trace H (Negative) Urine Nitrite Negative (Negative) Urine Bilirubin Negative (Negative) Urine Urobilinogen <2.0 (<2.0) mg/dL Ur Leukocyte Esterase Negative (Negative) Urine RBC 1 (0-5) /hpf Urine WBC 1 (0-5) /hpf Urine Mucus Occasional H (None) /hpf Disposition Clinical Impression: Chronic abdominal pain, Gastritis Disposition: HOME SELF-CARE Condition: Good Instructions (If sedation given, give patient instructions): Diet for Stomach Ulcers and Gastritis (ED), Abdominal Pain (ED) Additional Instructions: Please use medication as discussed. Please follow up with family doctor if symptoms have not improved over the next two days. Please return to the emergency room if your symptoms increase or worsen or for any other concerns. Prescriptions: Famotidine [Pepcid] 20 mg PO BID #20 tablet Is patient prescribed a controlled substance at d/c from ED?: No Referrals: None,Stated [Primary Care Provider] - 1-2 days Time of Disposition: 18:17
[2020-08-03 18:27] VITALS: BP 112/62; PULSE 59; TEMP 97.5
== END 2020-08-03 18:28 | disposition home or self-care (01) ==
LOC: EC 16:02
DX: K29.70 Gastritis, unspecified, without bleeding (principal); K21.9 Gastro-esophageal reflux disease without esophagitis; R05 Cough; F17.200 Nicotine dependence, unspecified, uncomplicated; Z79.899 Other long term (current) drug therapy
CPT/HCPCS: 36415; 80053; 82150; 83690; 85025; 81001; 99284; 96374; C9113

== ENCOUNTER 2024-08-01 14:09 | Emergency (ER) | payer BC ==
[2024-08-01 14:15] VITALS: RESP 18
--- NOTE | 2024-08-01 15:10 | ED ---
ENT HPI - General Chief complaint: Dental/Oral Stated complaint: R side dental pain Time Seen by Provider: 08/01/24 14:57 Source: patient, RN notes reviewed Mode of arrival: ambulatory Limitations: no limitations - History of Present Illness Initial comments: 29-year-old male presents emergency department chief complaint abdominal pain. Patient states pain is in the right lower jawline. No significant swelling or difficulty swallowing states has had on and off issues started last night worsening pain - Related Data Home Medications Medication Instructions Recorded Confirmed Famotidine [Pepcid] 20 mg PO BID 07/01/19 07/01/19 Omeprazole 20 mg PO DAILY 07/01/19 07/01/19 Previous Rx's Medication Instructions Recorded Famotidine [Pepcid] 20 mg PO BID #20 tablet 08/03/20 Amoxic-Pot Clav 875-125Mg 1 tab PO Q12HR 10 Days #20 tab 01/13/24 [Augmentin 875-125] Ibuprofen [Motrin] 800 mg PO Q8H PRN #30 tab 01/13/24 Amoxic-Pot Clav 875-125Mg 1 tab PO Q12HR #20 tab 08/01/24 [Augmentin 875-125] Ibuprofen [Motrin] 600 mg PO Q8HR PRN #20 tab 08/01/24 Allergies Allergy/AdvReac Type Severity Reaction Status Date / Time No Known Allergies Allergy Verified 08/01/24 14:15 Review of Systems ROS Statement: Those systems with pertinent positive or pertinent negative responses have been documented in the HPI. ROS Other: All systems not noted in ROS Statement are negative. Past Medical History Past Medical History: No Reported History History of Any Multi-Drug Resistant Organisms: None Reported Past Surgical History: Ear Surgery Additional Past Surgical History / Comment(s): Bilateral myringotomy/tubes Past Anesthesia/Blood Transfusion Reactions: No Reported Reaction Past Psychological History: No Psychological Hx Reported Smoking Status: Current every day smoker Past Alcohol Use History: None Reported Past Drug Use History: Marijuana - Past Family History Father Family Medical History: No Reported History Additional Family Medical History / Comment(s): Father is healthy. Mother Family Medical History: No Reported History Additional Family Medical History / Comment(s): Mother is healthy. General Exam Limitations: no limitations General appearance: alert, in no apparent distress Head exam: Present: atraumatic, normocephalic, normal inspection Eye exam: Present: normal appearance, PERRL, EOMI. Absent: scleral icterus, conjunctival injection, periorbital swelling ENT exam: Present: mucous membranes moist. Absent: normal exam, normal oropharynx (Edentulous multiple dental fractures no drainable abscess) Neck exam: Present: normal inspection, full ROM. Absent: tenderness, meningismus, lymphadenopathy Respiratory exam: Present: normal lung sounds bilaterally. Absent: respiratory distress, wheezes, rales, rhonchi, stridor Cardiovascular Exam: Present: regular rate, normal rhythm, normal heart sounds. Absent: systolic murmur, diastolic murmur, rubs, gallop, clicks Course Vital Signs 08/01/24 08/01/24 14:13 15:18 Temperature 98.1 F 98.0 F Pulse Rate 60 68 Respiratory 18 18 Rate Blood Pressure 121/78 122/70 O2 Sat by Pulse 99 99 Oximetry Medical Decision Making - Medical Decision Making Was pt. sent in by a medical professional or institution (, PA, SPEEDER OPERATOR, urgent care, hospital, or fpc...) When possible be specific @ -No Did you speak to anyone other than the patient for history (EMS, parent, family, police, friend...)? What history was obtained from this source @ -No Did you review nursing and triage notes (agree or disagree)? Why? @ -I reviewed and agree with nursing and triage notes Were old charts reviewed (outside hosp., previous admission, EMS record, old EKG, old radiological studies, urgent care reports/EKG's, fpc records)? Report findings @ -No old charts were reviewed Differential Diagnosis (chest pain, altered mental status, abdominal pain women, abdominal pain men, vaginal bleeding, weakness, fever, dyspnea, syncope, headache, dizziness, GI bleed, back pain, seizure, CVA, palpatations, mental health, musculoskeletal)? @ -Dental pain, dental infection, dental abscess EKG interpreted by me (3pts min.). @ -None X-rays interpreted by me (1pt min.). @ -None done CT interpreted by me (1pt min.). @ -None done U/S interpreted by me (1pt. min.). @ -None done What testing was considered but not performed or refused? (CT, X-rays, U/S, labs)? Why? @ -None What meds were considered but not given or refused? Why? @ -None Did you discuss the management of the patient with other professionals (professionals i.e. , PA, SPEEDER OPERATOR, lab, RT, psych nurse, social worker health services, ruby rails developer, teacher, program officer, briefcase sewer)? Give summary @ -No Was smoking cessation discussed for >3mins.? @ -No Was critical care preformed (if so, how long)? @ -No Were there social determinants of health that impacted care today? How? (Homelessness, low income, unemployed, alcoholism, drug addiction, trans portation, low edu. Level, literacy, decrease access to med. care, care home, rehab)? @ -No Was there de-escalation of care discussed even if they declined (Discuss DNR or withdrawal of care, Hospice)? DNR status @ -No What co-morbidities impacted this encounter? (DM, HTN, Smoking, COPD, CAD, Cancer, CVA, ARF, Chemo, Hep., AIDS, mental health diagnosis, sleep apnea, morbid obesity)? @ -None Was patient admitted / discharged? Hospital course, mention meds given and route, prescriptions, significant lab abnormalities, going to OR and other pertinent info. @ -Discharged patient has dental infection, no drainable abscess dental fractures will be discharged with oral antibiotics and follow-up with dentist Undiagnosed new problem with uncertain prognosis? @ -No Drug Therapy requiring intensive monitoring for toxicity (Heparin, Nitro, Insulin, Cardizem)? @ -No Were any procedures done? @ -No Diagnosis/symptom? @ -Dental infection tooth ache Acute, or Chronic, or Acute on Chronic? @ -Acute Uncomplicated (without systemic symptoms) or Complicated (systemic symptoms)? @ -uncomplicated Side effects of treatment? @ -No Exacerbation, Progression, or Severe Exacerbation? @ -No Poses a threat to life or bodily function? How? (Chest pain, [place], [place], pneumonia, PE, COPD, DKA, ARF, appy, cholecystitis, CVA, Diverticulitis, Homicidal, Suicidal, threat to staff... and all critical care pts) @ -No Disposition Clinical Impression: Toothache Disposition: HOME SELF-CARE Condition: Stable Instructions (If sedation given, give patient instructions): Toothache (ED) Additional Instructions: Please return to the Emergency Department if symptoms worsen or any other concerns. Prescriptions: Amoxic-Pot Clav 875-125Mg [Augmentin 875-125] 1 tab PO Q12HR #20 tab Ibuprofen [Motrin] 600 mg PO Q8HR PRN #20 tab PRN Reason: Pain Is patient prescribed a controlled substance at d/c from ED?: No Referrals: None,Stated [Primary Care Provider] - 1-2 days Time of Disposition: 15:10
[2024-08-01] MEDS: ACET/COD 300 MG/30 MG STARTER PACK 6 TAB BTL PO STA (15:17)
[2024-08-01 15:19] VITALS: BP 122/70; PULSE 68; TEMP 98
== END 2024-08-01 15:22 | disposition home or self-care (01) ==
LOC: EC 14:09
CPT/HCPCS: 96360; 99282; 99284